=== PATIENT | female | born 1985 | race Caucasian/White ===

== ENCOUNTER 2018-06-12 10:42 | Emergency (ER) | payer OTHER ==
[~2018-06-12] VITALS: Ht 162.6 cm; Wt 68.0 kg
== END 2018-06-12 14:32 | disposition home or self-care (01) ==
LOC: ER 10:42
DX: S00.81XA Abrasion of other part of head, initial encounter (principal); W18.39XA Other fall on same level, initial encounter; Y93.89 Activity, other specified; Y92.89 Other specified places as the place of occurrence of the external cause; Y99.8 Other external cause status

== ENCOUNTER 2023-11-02 01:22 | Emergency (ER) | payer OTHER ==
[~2023-11-02] VITALS: Ht 162.6 cm; Wt 75.7 kg
== END 2023-11-02 02:46 | disposition home or self-care (01) ==
LOC: ER 01:22
DX: T19.2XXA Foreign body in vulva and vagina, initial encounter (principal); X58.XXXA Exposure to other specified factors, initial encounter; Y92.89 Other specified places as the place of occurrence of the external cause

== ENCOUNTER 2024-05-18 19:36 | Emergency (ER) | payer OTHER ==
[~2024-05-18] VITALS: Ht 165.1 cm; Wt 79.4 kg
== END 2024-05-18 21:00 | disposition home or self-care (01) ==
LOC: ER 19:38
DX: A59.9 Trichomoniasis, unspecified (principal)

== ENCOUNTER 2024-07-13 08:25 | Outpatient (CLI) | payer OTHER | END 2024-07-13 08:40 | disposition home or self-care (01) | LOC: MAMO-SONO 08:25 | PROVIDERS: ATTEND Obstetrics & Gynecology | DX: N64.4 Mastodynia (principal); N64.51 Induration of breast; R92.0 Mammographic microcalcification found on diagnostic imaging of breast; Z12.31 Encounter for screening mammogram for malignant neoplasm of breast; N63.0 Unspecified lump in unspecified breast; R10.2 Pelvic and perineal pain; N92.1 Excessive and frequent menstruation with irregular cycle; N97.1 Female infertility of tubal origin; Z31.41 Encounter for fertility testing ==